=== PATIENT | female | born 1980 | race Caucasian/White ===

== ENCOUNTER 2016-12-05 15:32 | Emergency (ER) | payer BC ==
[2016-12-05 15:44] VITALS: BP 150/96
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
== END 2016-12-05 16:11 | disposition home or self-care (01) ==
LOC: ER 15:32
DX: Z03.89 Encounter for observation for other suspected diseases and conditions ruled out (principal); V44.6XXA Car passenger injured in collision with heavy transport vehicle or bus in traffic accident, initial encounter; Y93.9 Activity, unspecified; Y92.410 Unspecified street and highway as the place of occurrence of the external cause